=== PATIENT | female | born 1970 | race Caucasian/White ===

== ENCOUNTER 2016-11-18 11:34 | Emergency (ER) | payer BC ==
[~2016-11-18] VITALS: Wt 72.5 kg
[2016-11-18] MEDS ORDERED: PRED20TA PO (13:24)
[2016-11-18] MEDS ORDERED: HC30CR25 TOP (13:24)
[2016-11-18] MEDS ORDERED: BEN25 PO (13:24)
[2016-11-18] MEDS ORDERED: FAMO-18 PO (13:24)
--- NOTE | 2016-11-18 13:30 | ERD ---
ER Documentation Chief Complaint Date/Time DATE: 11/18/16 TIME: 13:26 Chief Complaint RASH SINCE YESTERDAY NO SOB NOTED HPI Patient is a 46-year-old female who presents to the ED with a generalized rash on her arms, legs, abdomen. She states that she drank tomato juice yesterday and developed this rash 2 hours after drinking the juice. She complains of itchiness. Denies difficulty breathing, swallowing. Denies tongue swelling or lip swelling. Denies fever or chills. Denies abdominal pain, nausea, vomiting or diarrhea. Denies cough, shortness of breath or difficulty breathing. She is not taking any medication for his symptoms besides allergy relief over-the- counter. She denies pain. ROS All systems reviewed and are negative except as per history of present illness. Medications Home Meds Active Scripts Diphenhydramine Hcl* (Benadryl*) 25 Mg Cap, 25 MG PO Q6, #30 CAP Prov:RILEYTARIMARISSA WOODWARD PA-C 11/18/16 Famotidine* (Pepcid*) 20 Mg Tablet, 20 MG PO BID for 4 Days, TAB Prov:RILEYTAMARISSA BECKFORD PA-C 11/18/16 Hydrocortisone* Topical (Hydrocortisone* Topical) 2.5%-28.3 Gm Cream..g., 1 APPLIC TOP BID, #2 TUB Prov:MARISSA MALDONADO PA-C 11/18/16 Prednisone* (Prednisone*) 20 Mg Tab, 40 MG PO DAILY for 4 Days, TAB Prov:RILEYTARIMARISSA WOODWARD PA-C 11/18/16 Allergies Allergies: Coded Allergies: Penicillins (Verified Allergy, Severe, 11/18/16) Aspirin (Verified Allergy, 11/18/16) PMhx/Soc Medical and Surgical Hx: pt denies Medical Hx, pt denies Surgical Hx History of Surgery: No Anesthesia Reaction: No Hx Neurological Disorder: No Hx Respiratory Disorders: No Hx Cardiac Disorders: No Hx Psychiatric Problems: No Hx Miscellaneous Medical Probl: No Hx Alcohol Use: No Hx Substance Use: No Hx Tobacco Use: No Smoking Status: Never smoker FmHx Family History: No coronary disease, No diabetes, No other Physical Exam Vitals Vital Signs Date Time Temp Pulse Resp B/P Pulse Ox O2 Delivery O2 Flow Rate FiO2 11/18/16 11:51 98.9 90 21 115/78 99 Physical Exam GENERAL: Well-developed, well-nourished female. Appears in no acute distress. HEAD: Normocephalic, atraumatic. EYES: Pupils are equally reactive bilaterally. EOMs grossly intact. No conjunctival erythema. ENT: Moist mucous membranes. No uvula deviation. No kissing tonsils. No exudates. No angioedema NECK: Supple. No lymphadenopathy or thyromegaly. No meningismus. negative kernig. negative brudinski. LUNG: Clear to auscultation bilaterally. No rhonchi, wheezing, rales or coarse breath sounds. HEART: Regular rate and rhythm. No murmurs, rubs or gallops. ABDOMEN: No scars, ecchymosis . Soft, nontender, and nondistended. Positive bowel sounds in all four quadrants. No rebound tenderness, no guarding. (-) McBurneys point tenderness. No CVA tenderness. SKIN: Normal color. Warm and dry. . Capillary refill < 2 seconds. Erythematous flat rash on arms, back, legs and abdomen. No warmth or tenderness. No drainage. Procedures/MDM ER COURSE: I kept the patient and/or family informed of laboratory and diagnostic imaging results throughout the emergency room course. MEDICAL DECISION MAKING: This is a 46-year-old female who presents with rash. Vital signs were reviewed. Patient is afebrile. Patient is not hypoxic. Patient has a rash of uncertain etiology, likely allergic reaction to the tomato juice. Low suspicion for necrotizing fasciitis, SJS, toxic epidermal necrolysis, Kawasaki, erythema multiforme, gangrene, scarlet fever, meningococcemia, sepsis, anaphylaxis, sepsis, deep space infection, or foreign body. Patient is afebrile with a nontender rash low suspicion for cellulitis. Patient does not show signs of respiratory distress, does not have difficulty swallowing, speaking does not have tongue swelling or lip swelling. Low suspicion for angioedema DISCHARGE: At this time, patient is stable for discharge and outpatient management with no new complaints during the ER course. Patient was sent home with prednisone, Benadryl, hydrocortisone cream and Pepcid. Patient will be discharged home with instructions to recheck for new or worsening symptoms such as fever, nausea, weakness, LOC and to follow up with primary care in the next 1-2 days. Patient was advised to return to the ER for any new or worsening symptoms. Plan was discussed and patient and/or family understands and agrees. Home instructions were given. Departure Diagnosis: Primary Impression: Rash Condition: Stable Patient Instructions: Self-Care for Skin Rashes Additional Instructions: Call your primary care doctor TOMORROW for an appointment during the next 1-2 days.See the doctor sooner or return here if your condition worsens before your appointment time. MARISSA MALDONADO PA-C Nov 18, 2016 13:30
== END 2016-11-18 13:30 | disposition home or self-care (01) ==
LOC: FTE 11:34
DX: R21 Rash and other nonspecific skin eruption (principal)
CPT/HCPCS: 99283